=== PATIENT | male | born 1995 | race Caucasian/White ===

== ENCOUNTER 2017-10-05 15:50 | Emergency (ER) | payer BC, OTHER ==
[2017-10-05] MEDS ORDERED: LORazepam 2 MG/ML INJ IVP ONE (16:18)
[2017-10-05] MEDS ORDERED: NS 1,000 ML IV ONE (16:18)
[2017-10-05 16:42] LABS: PLATELET COUNT 156 10^3/uL (150-400)
--- NOTE | 2017-10-05 17:09 | EDPHY ---
H & P Stated Complaint: n/v x 3 days/hx cyclical vomiting/daily thc user Time Seen by Provider: 10/05/17 15:59 HPI/ROS: CHIEF COMPLAINT: Nausea, vomiting HISTORY OF PRESENT ILLNESS: The patient presents the ED complaints of nausea and vomiting for the past 3 days. The patient reports a history of similar symptoms in the past. The patient reports he has a chronic daily user of marijuana. He reports he has also been under some increasing stress and anxiety secondary to his schoolwork. The patient denies fever. REVIEW OF SYSTEMS: A comprehensive 10 point review of systems is otherwise negative aside from elements mentioned in the history of present illness. Source: Patient Exam Limitations: No limitations - Personal History Current Tetanus/Diphtheria Vaccine: Yes Tetanus Vaccine Date: student - Medical/Surgical History Hx Asthma: No Hx Chronic Respiratory Disease: No Hx Diabetes: No Hx Cardiac Disease: No Hx Renal Disease: No Hx Cirrhosis: No Hx Alcoholism: No Hx HIV/AIDS: No Hx Splenectomy or Spleen Trauma: No Other PMH: cyclical vomiting - Social History Smoking Status: Never smoked - Physical Exam Exam: General Appearance: Alert, no distress Eyes: Pupils equal and round no pallor or injection ENT, Mouth: Mucous membranes moist Respiratory: There are no retractions, lungs are clear to auscultation Cardiovascular: Regular rate and rhythm Gastrointestinal: Minimal epigastric tenderness to palpation Neurological: A&O, normal motor function, normal sensory exam, normal cranial nerves Skin: Warm and dry, no rashes Musculoskeletal: Neck is supple nontender Extremities: symmetrical, full range of motion Constitutional: Initial Vital Signs Temperature (C) 36.7 C 10/05/17 15:54 Heart Rate 72 10/05/17 15:54 Respiratory Rate 18 10/05/17 15:54 Blood Pressure 122/74 H 10/05/17 15:54 O2 Sat (%) 97 10/05/17 15:54 O2 Delivery Mode Room Air Allergies/Adverse Reactions: No Known Allergies Allergy (Unverified 10/05/17 15:53) Home Medications: Medication Instructions Recorded Promethazine HCl [Phenergan 25mg 25 mg PO BID PRN #30 tab 10/05/17 (*)] Zofran 10/05/17 Medical Decision Making ED Course/Re-evaluation: The patient presents to the ED with a acute exacerbation of cyclic vomiting. The patient received Zofran prior to arrival. The patient's laboratory studies are unrevealing. The patient's abdominal examination is benign. The patient did receive 1 mg of Ativan in the emergency department. I re-evaluated the patient at 6:00 p.m.. He is feeling much better. No recurrent nausea and vomiting in the ED. The patient will be discharged home with a prescription for Phenergan. I have discussed with him the linkage between chronic daily marijuana use and the development of cyclic vomiting. - Data Points Laboratory Results: Laboratory Results 10/05/17 16:25 10/05/17 16:25 10/05/17 10/05/17 16:25 16:25 WBC 8.98 10^3/uL 10^3/uL (3.80-9.50) RBC 4.63 10^6/uL 10^6/uL (4.40-6.38) Hgb 15.2 g/dL g/dL (13.7-17.5) Hct 42.7 % % (40.0-51.0) MCV 92.2 fL fL (81.5-99.8) MCH 32.8 pg pg (27.9-34.1) MCHC 35.6 g/dL g/dL (32.4-36.7) RDW 12.9 % % (11.5-15.2) Plt Count 156 10^3/uL 10^3/uL (150-400) MPV 12.5 fL H fL (8.7-11.7) Neut % (Auto) 88.6 % H % (39.3-74.2) Lymph % (Auto) 8.0 % L % (15.0-45.0) Clay % (Auto) 2.9 % L % (4.5-13.0) Eos % (Auto) 0.1 % L % (0.6-7.6) Baso % (Auto) 0.1 % L % (0.3-1.7) Nucleat RBC Rel Count 0.0 % % (0.0-0.2) Absolute Neuts (auto) 7.95 10^3/uL H 10^3/uL (1.70-6.50) Absolute Lymphs (auto) 0.72 10^3/uL L 10^3/uL (1.00-3.00) Absolute Monos (auto) 0.26 10^3/uL L 10^3/uL (0.30-0.80) Absolute Eos (auto) 0.01 10^3/uL L 10^3/uL (0.03-0.40) Absolute Basos (auto) 0.01 10^3/uL L 10^3/uL (0.02-0.10) Absolute Nucleated RBC 0.00 10^3/uL 10^3/uL (0-0.01) Immature Gran % 0.3 % % (0.0-1.1) Immature Gran # 0.03 10^3/uL 10^3/uL (0.00-0.10) Sodium 143 mEq/L mEq/L (135-145) Potassium 4.4 mEq/L mEq/L (3.3-5.0) Chloride 101 mEq/L mEq/L (97-110) Carbon Dioxide 17 mEq/l L mEq/l (22-31) Anion Gap 25 mEq/L H mEq/L (8-16) BUN 19 mg/dL mg/dL (7-23) Creatinine 1.0 mg/dL mg/dL (0.7-1.3) Estimated GFR > 60 Glucose 76 mg/dL mg/dL (70-100) Calcium 9.2 mg/dL mg/dL (8.5-10.4) Total Bilirubin 1.4 mg/dL mg/dL (0.1-1.4) Conjugated Bilirubin 0.6 mg/dL H mg/dL (0.0-0.5) Unconjugated Bilirubin 0.8 mg/dL mg/dL (0.0-1.1) AST 29 IU/L IU/L (17-59) ALT 27 IU/L IU/L (21-72) Alkaline Phosphatase 63 IU/L IU/L (38-126) Total Protein 7.7 g/dL g/dL (6.3-8.2) Albumin 5.0 g/dL g/dL (3.5-5.0) Lipase 32 IU/L IU/L (23-300) Medications Given: Discontinued Medications Sodium Chloride (Ns) 1,000 mls @ 0 mls/hr IV EDNOW ONE; Wide Open PRN Reason: Protocol Stop: 10/05/17 16:19 Last Admin: 10/05/17 16:30 Dose: 1,000 mls Lorazepam (Ativan Injection) 1 mg IVP EDNOW ONE Stop: 10/05/17 16:19 Last Admin: 10/05/17 16:31 Dose: 1 mg Departure - Departure Disposition: Home, Routine, Self-Care Clinical Impression: Cyclic vomiting syndrome Condition: Good Instructions: Cyclic Vomiting Syndrome (ED) Additional Instructions: 1. Phenergan as needed for nausea and vomiting. 2. I do recommend considering complete abstinence from marijuana as this has been associated with cyclic vomiting and chronic nausea. 3. Please return to the ED for markedly worsening symptoms or other concerns. Referrals: [facility] Valverde,. [Clinic] - As per Instructions Prescriptions: Promethazine HCl [Phenergan 25mg (*)] 25 mg PO BID PRN #30 tab PRN Reason: for nausea
[2017-10-05 17:50] VITALS: BP 123/66
[2017-10-05] MEDS ORDERED: HALOPERIDOL LACT 5 MG/ML INJ IVP ONE (18:28)
== END 2017-10-05 19:30 | disposition home or self-care (01) ==
DX: G43.A0 Cyclical vomiting, in migraine, not intractable (principal); E86.9 Volume depletion, unspecified
CPT/HCPCS: 96374; J1630; J2060